=== PATIENT | female | born 1950 | race Caucasian/White ===

== ENCOUNTER 2022-02-11 09:13 | Emergency (ER) | payer MEDICARE, OTHER ==
[2022-02-11 09:26] VITALS: BP 152/86
[2022-02-11] MEDS ORDERED: LIDOCAINE 2%-EPI 1:100000 20 ML MDV ONE (09:53)
[2022-02-11] MEDS ORDERED: LIDOCAINE 2%-EPI 1:100000 20 ML MDV SUBQ STA (10:16)
--- NOTE | 2022-02-11 10:25 | ED Physician Documentation ---
History of Present Illness - Stated complaint Stated Complaint: RT THUMB LAC - Chief complaint Chief Complaint: Laceration - History obtained from History obtained from: Patient - History of Present Illness Timing: Today Pain level max: 4 Pain level now: 3 - Additonal information Additional information: Patient is a 71-year-old female who presents to the emergency department with a right thenar eminence laceration. This occurred at home while cutting an avocado. Tetanus is up-to-date. Patient is right-handed. Better with pressure, nothing makes it worse. 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 - Present Medications Home Medications: Ambulatory Orders Medication Instructions Recorded Confirmed No Known Home Medications 08/30/14 08/30/14 - Allergies Allergies/Adverse Reactions: Allergies Allergy/AdvReac Type Severity Reaction Status Date / Time No Known Drug Allergies Allergy Verified 02/11/22 09:26 - Social History Does the pt smoke?: No Smoking Status: Never smoker Does the pt drink ETOH?: Yes Does the pt have substance abuse?: No - Immunizations Immunizations are current?: Yes Immunizations: TDAP current <10years, TDAP >10years/unknown PD ED PE NORMAL - Vitals Vital signs reviewed: Yes - General General: Alert and oriented X 3, No acute distress - Derm Derm: Warm and dry - Neuro Neuro: Alert and oriented X 3 - Psych Psych: Normal mood, Normal affect PD ED PE EXPANDED - Extremities RETA UE/Hands Visual: 1 - laceration (4 cm, linear, subcutaneous. Neurovascular intact. Tendons intact. Full range of motion of the thumb tested against resistance.) Results - Vitals Vitals: Vital Signs - 24 hr 02/11/22 09:23 Temperature 36.5 C Heart Rate 84 Respiratory 16 Rate Blood Pressure 152/86 H O2 Saturation 97 Oxygen O2 Source Room air Procedures - Laceration (location) Right thenar eminence Length in cm: 4 Wound type: Linear, Into subcut fat, Clean Neurovascular status: Sensory intact, Motor intact, Vascular intact Tendon involvement: Tendon intact Anesthesia: Lidocaine 2% with epi Wound preparation: Irrigated copiously NS, Wound explored, To the base Skin layer closure: Interrupted, Size #-0 - enter number (4), Sutures - enter # (7) Other: Patient tolerated well, No complications, Neurovascular intact, Dressing applied, Tetanus UTD PD MEDICAL DECISION MAKING - ED course Complexity details: reviewed results, re-evaluated patient, considered diff erential, d/w patient ED course: Laceration repaired. Tolerated well. Warnings of infection and instructions on wound care given at bedside. Also counseled on how to minimize scarring. Patient and family counseled regarding signs and symptoms for which I believe and urgent re-evaluation would be necessary. Patient with good understanding of and agreement to plan and is comfortable going home at this time This document was made in part using voice recognition software. While efforts are made to proofread this document, sound alike and grammatical errors may occur. Departure - Departure Disposition: 01 Home, Self Care Clinical Impression: Thumb laceration Qualifiers: Encounter type: initial encounter Damage to nail status: without damage Foreign body presence: without foreign body Laterality: right Qualified Code(s): S61.011A - Laceration without foreign body of right thumb without damage to nail, initial encounter Condition: Good Instructions: ED Laceration Hand Follow-Up: Sonia Pendleton MD [Primary Care Provider] - Comments: Follow-up with your doctor in 10 to 14 days for suture removal. Return if you notice redness, swelling or drainage from the wound. Keep the wound clean. You can gently wash the area. Discharge Date/Time: 02/11/22 10:29
== END 2022-02-11 10:29 | disposition home or self-care (01) ==
LOC: ED 09:13
DX: S61.011A Laceration without foreign body of right thumb without damage to nail, initial encounter (principal); W26.0XXA Contact with knife, initial encounter; Y93.G1 Activity, food preparation and clean up; Y92.009 Unspecified place in unspecified non-institutional (private) residence as the place of occurrence of the external cause
CPT/HCPCS: 12002; 99282

== ENCOUNTER 2022-06-28 08:00 | Outpatient (CLI) | payer MEDICARE, OTHER ==
[2022-06-28 16:05] LABS: BASOPHILS % (AUTO) 0.5 %; EOSINOPHILS # (AUTO) 0.3 10^3/uL (0.0-0.7); EOSINOPHILS % (AUTO) 4.2 %; HCT - HEMATOCRIT 43.8 % (37.0-47.0); HGB - HEMOGLOBIN 14.3 g/dL (12.0-16.0); LYMPHOCYTES # (AUTO) 2.1 10^3/uL (1.5-3.5); LYMPHOCYTES % (AUTO) 34.4 %; MEAN CORPUSCULAR HEMOGLOBIN 30.1 pg (27.0-31.0); MEAN CORPUSCULAR HGB CONC 32.6 g/dL (32.0-36.0); MEAN CORPUSCULAR VOLUME 92.2 fL (81.0-99.0); MEAN PLATELET VOLUME 12.5 fL (7.9-10.8); MONOCYTES # (AUTO) 0.4 10^3/uL (0.0-1.0); MONOCYTES % (AUTO) 6.2 %; NEUTROPHILS # (AUTO) 3.3 10^3/uL (1.5-6.6); NEUTROPHILS % (AUTO) 54.4 %; PLT - PLATELET COUNT 225 10^3/uL (130-450); RED BLOOD COUNT 4.75 10^6/uL (4.20-5.40); RED CELL DISTRIBUTION WIDTH 13.5 % (12.0-15.0); WHITE BLOOD COUNT 6.1 x10^3/uL (4.8-10.8)
[2022-06-28 16:20] LABS: ALBUMIN 4.2 g/dL (3.2-5.5); ALBUMIN/GLOBULIN RATIO 1.6 (1.0-2.2); ALKALINE PHOSPHATASE 61 IU/L (42-121); ALT ALANINE AMINOTRANSFERASE 27 IU/L (10-60); AST ASPARTATE AMINOTRANSFERASE 21 IU/L (10-42); BUN - BLOOD UREA NITROGEN 15 mg/dL (6-20); CALCIUM 9.7 mg/dL (8.5-10.3); CARBON DIOXIDE - CO2 23 mmol/L (21-32); CHLORIDE 104 mmol/L (101-111); CHOL/HDL RATIO 5.2 (<4.4); CHOLESTEROL 309 mg/dL; CREATININE 0.4 mg/dL (0.4-1.0); GFR - MDRD 157 (>89); GLUCOSE 95 mg/dL (70-100); HDL CHOLESTEROL 59 mg/dL; LDL CHOLESTEROL,CALCULATED 227 mg/dL; LDL/HDL RATIO 3.8 (<4.4); POTASSIUM 3.9 mmol/L (3.5-5.0); SODIUM 136 mmol/L (135-145); TOTAL PROTEIN 6.9 g/dL (6.7-8.2); TRIGLYCERIDES 113 mg/dL; VLDL CHOLESTEROL 23 mg/dL
[2022-06-28 20:50] LABS: ESTIMATED AVERAGE GLUCOSE 103 mg/dL (70-100); HEMOGLOBIN A1c% 5.2 % (4.27-6.07)
== END 2022-06-28 23:59 | disposition home or self-care (01) ==
LOC: LAB.R 08:00
PROVIDERS: ATTEND Internal Medicine
DX: Z00.00 Encounter for general adult medical examination without abnormal findings (principal); R23.4 Changes in skin texture; E78.5 Hyperlipidemia, unspecified; R73.01 Impaired fasting glucose; R19.4 Change in bowel habit; H91.90 Unspecified hearing loss, unspecified ear; G12.9 Spinal muscular atrophy, unspecified
CPT/HCPCS: 80053; 80061; 82306; 83036; 83721; 84443; 85025

== ENCOUNTER 2022-08-12 12:47 | Outpatient (CLI) | payer MEDICARE, OTHER ==
--- NOTE | 2022-08-14 16:25 | Mammography Report ---
BILATERAL DIGITAL SCREENING MAMMOGRAM 3D/2D: 08/12/2022 CLINICAL: Routine screening. Comparison is made to exams dated: 01/17/2011 mammogram and 04/23/2008 mammogram - [facility]. Both breasts are heterogeneously dense, which may obscure small masses (category c / 51-75% glandular tissue). There is a developing new oval asymmetry with an indistinct margin in the left breast at 10 o'clock p osterior depth. No other significant masses, calcifications, or other findings are seen in either breast. IMPRESSION: INCOMPLETE: NEEDS ADDITIONAL IMAGING EVALUATION The developing new oval asymmetry in the left breast is indeterminate. Additional views with possibl e ultrasound are recommended. Based on the Tyrer Cuzick model (a risk assessment model) the patients lifetime risk is 6.7% and her 10 year risk is 4.6%. According to the ACR, ACS, and NCCN guidelines, an annual breast MRI exam stephany g with mammogram is recommended if the patients lifetime risk is 20% or greater. This exam was interpreted at Station ID: [id number]. NOTE: For mammograms, a report in lay terms will be sent to the patient. Approximately 15% of breast malignancies will not be visualized mammographically. In the management of a palpable breast mass, a negative mammogram must not discourage biopsy of a clinically suspicious lesion. Electronically Signed By: Madhavi ornelas/:08/13/2022 14:45:18 ACR BI-RADS Category 0: Incomplete 3340F PARENCHYMAL PATTERN: (D) - The breast(s) demonstrate(s) heterogeneously dense fibroglandular rigoberto martinez. BI-RADS CATEGORY: (0) - 0 Mammo and US [id number] Immediate follow-up LATERALITY: (B)
== END 2022-08-12 12:48 | disposition home or self-care (01) ==
LOC: DI 12:47
PROVIDERS: ATTEND Internal Medicine
DX: Z12.31 Encounter for screening mammogram for malignant neoplasm of breast (principal); R92.8 Other abnormal and inconclusive findings on diagnostic imaging of breast

== ENCOUNTER 2022-08-12 12:48 | Outpatient (CLI) | payer MEDICARE, OTHER ==
--- NOTE | 2022-08-12 15:28 | DEXA Report ---
PROCEDURE: Dexa Spine and/or Hip INDICATIONS: POST MENOPAUSAL TECHNIQUE: Dual energy x-ray absorptiometry (DXA) was performed on a [employer] System. Regions measur ed are the AP Spine, femoral neck, and if needed forearm. COMPARISON: None. FINDINGS: Lumbar Spine: Bone Mineral Density 0.972 g/cm/cm,T score -1.7. Left Hip: Bone Mineral Density 0.728 g/cm/cm,T score -2.2. Left Femoral Neck: Bone Mineral Density 0.697 g/cm/cm, T score -2.4. (T score greater or equal to -1.0: NORMAL) (T score from -1.1 to -2.4: OSTEOPENIA) (T score less than or equal to -2.5 to: OSTEOPOROSIS) Impression: Osteopenia. Patients with diagnosis of osteoporosis or osteopenia should have regular bone mineral density assess ment. For those eligible for Medicare, routine testing is allowed once every 2 years. Testing frequ ency can be increased for patients who have rapidly progressing disease or for those who are receivin g medical therapy to restore bone mass. Reviewed by: Marcelino Mariano MD on 08/12/2022 3:27 PM PST Approved by: Marcelino Mariano MD on 08/12/2022 3:27 PM PST Station ID: [id number]
== END 2022-08-12 12:49 | disposition home or self-care (01) ==
LOC: DI 12:48
PROVIDERS: ATTEND Internal Medicine
DX: M85.89 Other specified disorders of bone density and structure, multiple sites (principal); Z78.0 Asymptomatic menopausal state

== ENCOUNTER 2022-09-06 08:46 | Outpatient (CLI) | payer MEDICARE, OTHER ==
--- NOTE | 2022-09-09 11:13 | Mammography Report ---
UNILATERAL LEFT DIGITAL DIAGNOSTIC MAMMOGRAM 3D/2D: 09/06/2022 CLINICAL: Patient returns today to evaluate a focal asymmetry in the left breast. Comparison is made to exams dated: 08/12/2022 mammogram, 01/17/2011 mammogram, and 04/23/2008 mammogram - [facility]. The left breast is heterogeneously dense, which may obscure small masses (category c / 51-75% glandul ar tissue). There is a new 9 mm oval asymmetry with an obscured and circumscribed margin in the left breast at 9 o'clock posterior depth. This is seen in additional views. No other significant masses or calcifications are seen in the breast. IMPRESSION: INCOMPLETE: NEEDS ADDITIONAL IMAGING EVALUATION The developing new 9 mm oval asymmetry in the left breast remains indeterminate. An ultrasound is re commended. This was performed immediately following this exam. Based on the Tyrer Cuzick model (a risk assessment model) the patients lifetime risk is 6.7% and her 10 year risk is 4.6%. According to the ACR, ACS, and NCCN guidelines, an annual breast MRI exam stephany g with mammogram is recommended if the patients lifetime risk is 20% or greater. This exam was interpreted at Station ID: [id number]. NOTE: For mammograms, a report in lay terms will be sent to the patient. Approximately 15% of breast malignancies will not be visualized mammographically. In the management of a palpable breast mass, a negative mammogram must not discourage biopsy of a clinically suspicious lesion. Electronically Signed By: Madhavi ornelas/:09/06/2022 09:25:41 ACR BI-RADS Category 0: Incomplete 3340F PARENCHYMAL PATTERN: (D) - The breast(s) demonstrate(s) heterogeneously dense fibroglandular parjodiy ma. BI-RADS CATEGORY: (0) - 0 Ultrasound [id number] Immediate follow-up LATERALITY: (B)
--- NOTE | 2022-09-09 11:13 | Ultrasound Report ---
LIMITED ULTRASOUND OF LEFT BREAST: 09/06/2022 CLINICAL: Patient returns today to evaluate a focal asymmetry in the left breast. Comparison is made to exams dated: 09/06/2022 mammogram, 08/12/2022 mammogram, 01/17/2011 mammogram, an d 04/23/2008 mammogram - [facility]. Color flow and real-time ultrasound of the left breast 9 o'clock region were performed. Harman scale images of the real-time examination were reviewed. There is a 0.8 cm x 0.8 cm x 0.4 cm wider than tall oval mass with a microlobulated margin in the lef t breast at 9 o'clock posterior depth 7 cm from the nipple with the long axis parallel to the skin. This oval mass is hypoechoic with posterior acoustic enhancement. This correlates with mammography f indings. Color flow imaging demonstrates that there is no vascularity present. IMPRESSION: PROBABLY BENIGN The 0.8 cm x 0.8 cm x 0.4 cm wider than tall oval mass in the left breast has a differential diagnosi s of clustered cysts, a complicated cyst, a lymph node, or a fibroadenoma and is probably benign. A follow-up left mammogram and an ultrasound in 6 months is recommended to demonstrate stability. Findings and recommendations were conveyed to the patient at time of exam. This exam was interpreted at Station ID: [id number]. Electronically Signed By: Madhavi ornelas/:09/06/2022 10:34:28 Ultrasound BI-RADS: 3 Probably benign BI-RADS CATEGORY: (3) - 3 Mammo and US [id number] 6 month follow-up LATERALITY: (L)
== END 2022-09-06 08:47 | disposition home or self-care (01) ==
LOC: DI 08:46
PROVIDERS: ATTEND Internal Medicine
DX: R92.8 Other abnormal and inconclusive findings on diagnostic imaging of breast (principal); N63.25 Unspecified lump in the left breast, overlapping quadrants

== ENCOUNTER 2022-09-13 06:32 | Day surgery (SDC) | payer MEDICARE, OTHER ==
[2022-09-13] MEDS ORDERED: LACTATED RINGERS 1,000 ML IV ONE ×2 (07:04→08:06)
[2022-09-13] MEDS ORDERED: PROPOFOL 200 MG/20 ML VIAL IVP ONE (07:31)
[2022-09-13] MEDS ORDERED: PROPOFOL 500 MG/50 ML 500 MG/50 ML VIAL ONE (07:31)
--- NOTE | 2022-09-13 07:34 | ANESTHESIA ---
Pre-Anesthesia VS, & Labs - Diagnosis screening - Procedure colonoscopy Vital Signs: Temp Pulse Resp BP Pulse Ox O2 Flow Rate 36.0 C L 63 12 142/64 H 99 09/13/22 06:59 09/13/22 06:59 09/13/22 06:59 09/13/22 06:59 09/13/22 06:59 Height: 4 ft 9 in Weight (kg): 52.9 kg Body Mass Index: 25.2 BMI Classification: Overweight - NPO >8 hours - Is Patient ?: No Home Medications and Allergies No Known Home Medications 08/30/14 Allergies/Adverse Reactions: Allergies Allergy/AdvReac Type Severity Reaction Status Date / Time No Known Drug Allergies Allergy Verified 02/11/22 09:26 Anes History & Medical History - Anesthetic History Anesthesia Complications: reports: No previous complications Family history of Anesthesia Complications: Denies Family history of Malignant Hyperthermia: Denies - Medical History Cardiovascular: reports: High cholesterol Pulmonary: reports: None Gastrointestinal: reports: None Urinary: reports: None Musculoskeletal: reports: None Endocrine/Autoimmune: reports: None Skin: reports: None Smoking Status: Never smoker - Surgical History Eyes Ears Nose Throat (EENT): reports: Cataracts Gynecologic: reports: section Orthopedic: reports: Other Exam General: Alert, Oriented x3, Cooperative Dental: WNL Mouth Openin Fingerbreadth Neck Mobility: Normal Mallampati classification: I Thyromental Distance: 4-6 cm Respiratory: Lungs clear Cardiovascular: Regular rate Plan Anesthesia Type: General, Total IV Consent for Procedure(s) Verified and Reviewed: Yes Code Status: Attempt Resuscitation ASA classification: 2-Mild systemic disease Is this case an emergency?: No
[2022-09-13 08:31] VITALS: BP 148/59
--- NOTE | 2022-09-13 14:05 | ANESTHESIA POST OP EVALUATION ---
Anesthesia Post Eval - Post Anesthesia Eval Vitals: Last Vital Signs Temp 36.2 C L 09/13/22 08:29 Pulse 62 09/13/22 08:29 Resp 16 09/13/22 08:29 BP 148/59 H 09/13/22 08:29 Pulse Ox 100 09/13/22 08:29 O2 Flow Rate CV Function Including HR & BP: Stable Pain Control: Satisfactory Nausea & Vomiting: Negative Mental Status: Baseline Respiratory Status: Airway Patent Hydration Status: Satisfactory Anesthesia Complications: None
== END 2022-09-13 06:33 | disposition home or self-care (01) ==
LOC: SDS 06:32
PROVIDERS: ATTEND Surgery
PROC: 0DBL8ZZ Excision of Transverse Colon, Via Natural or Artificial Opening Endoscopic (ICD-10-PCS; principal; 2022-09-13 07:30)
DX: Z12.11 Encounter for screening for malignant neoplasm of colon (principal); K63.5 Polyp of colon; K57.30 Diverticulosis of large intestine without perforation or abscess without bleeding; K64.8 Other hemorrhoids
CPT/HCPCS: 45385; J7120

== ENCOUNTER 2023-04-04 08:34 | Outpatient (CLI) | payer MEDICARE, OTHER ==
--- NOTE | 2023-04-07 10:52 | Ultrasound Report ---
LIMITED ULTRASOUND OF LEFT BREAST: 04/04/2023 CLINICAL: Patient returns today to evaluate a focal asymmetry in the left breast. Comparison is made to exams dated: 04/23/2008 mammogram, 01/17/2011 mammogram, 08/12/2022 mammogram, mammogram, 09/06/2022 ultrasound, and 04/04/2023 mammogram - [facility]. Color flow and real-time ultrasound of the left breast 9 o'clock region were performed. Harman scale images of the real-time examination were reviewed. There is a 1 cm x 0.7 cm x 0.4 cm wider than tall oval mass in the left breast at 9 o'clock posterior depth 7 cm from the nipple with the long axis parallel to the skin. This oval mass is hypoechoic wi th internal echoes and posterior acoustic enhancement. This abnormality is not significantly changed and correlates with mammography findings. Color flow imaging demonstrates that there is no vascular ity present. IMPRESSION: PROBABLY BENIGN The 1 cm x 0.7 cm x 0.4 cm wider than tall oval mass in the left breast has a differential diagnosis of clustered cysts, a complicated cyst, a lymph node, or a fibroadenoma and is probably benign. A follow-up bilateral mammogram and a left ultrasound in 6 months is recommended to demonstrate karina nued stability. Findings and recommendations were conveyed to the patient during today's evaluation. This exam was interpreted at Station ID: [id number]. Electronically Signed By: Lavelle Javier M.D. aty/:04/04/2023 09:57:01 Ultrasound BI-RADS: 3 Probably benign BI-RADS CATEGORY: (3) - 3 Mammo and US [id number] 6 month follow-up LATERALITY: (B)
--- NOTE | 2023-04-07 10:52 | Mammography Report ---
UNILATERAL LEFT DIGITAL DIAGNOSTIC MAMMOGRAM 3D/2D: 04/04/2023 CLINICAL: Patient returns for a 6 month follow up of the left breast. Comparison is made to exams dated: 09/06/2022 mammogram and 08/12/2022 mammogram - [facility]. The left breast is heterogeneously dense, which may obscure small masses (category c / 51-75% glandul ar tissue). There is a 9 mm oval focal asymmetry with an obscured and circumscribed margin in the left breast at 9 o'clock posterior depth. This is not significantly changed. No other significant masses or calcifications are seen in the breast. IMPRESSION: INCOMPLETE: NEEDS ADDITIONAL IMAGING EVALUATION The 9 mm oval focal asymmetry in the left breast resembles a cyst or clustered cysts and is indetermi santana. An ultrasound is recommended. Based on the Tyrer Cuzick model (a risk assessment model) the patients lifetime risk is 6.7% and her 10 year risk is 4.6%. According to the ACR, ACS, and NCCN guidelines, an annual breast MRI exam stephany g with mammogram is recommended if the patients lifetime risk is 20% or greater. This exam was interpreted at Station ID: [id number]. NOTE: For mammograms, a report in lay terms will be sent to the patient. Approximately 15% of breast malignancies will not be visualized mammographically. In the management of a palpable breast mass, a negative mammogram must not discourage biopsy of a clinically suspicious lesion. Electronically Signed By: Lavelle Javier M.D. atclaude/stephanie:04/04/2023 09:55:11 ACR BI-RADS Category 0: Incomplete 3340F PARENCHYMAL PATTERN: (D) - The breast(s) demonstrate(s) heterogeneously dense fibroglandular parjosue martinez. BI-RADS CATEGORY: (0) - 0 Ultrasound [id number] Immediate follow-up LATERALITY: (L)
== END 2023-04-04 08:35 | disposition home or self-care (01) ==
LOC: DI 08:34
PROVIDERS: ATTEND Internal Medicine
DX: N63.25 Unspecified lump in the left breast, overlapping quadrants (principal)

== ENCOUNTER 2023-10-22 08:12 | Outpatient (CLI) | payer MEDICARE, OTHER ==
--- NOTE | 2023-10-22 12:57 | Mammography Report ---
BILATERAL DIGITAL DIAGNOSTIC MAMMOGRAM 3D/2D: 10/22/2023 CLINICAL: Patient returns for a 6 month follow up of the left breast, due for bilateral exam. Comparison is made to exams dated: 04/04/2023 mammogram, 09/06/2022 mammogram, and 08/12/2022 mammogram - [facility]. Both breasts are heterogeneously dense, which may obscure small masses (category c / 51-75% glandular tissue). There is a 9 mm oval equal density asymmetry with an obscured and circumscribed margin in the left br east at 9 o'clock posterior depth. This is seen in additional views. This has not significantly barry nged. No other significant masses, calcifications, or other findings are seen in either breast. Bilateral mammograms are otherwise stable. Occasional benign calcifications are present. IMPRESSION: INCOMPLETE: NEEDS ADDITIONAL IMAGING EVALUATION The 9 mm oval equal density asymmetry in the left breast is unchanged. An ultrasound is recommended t o demonstrate stability. This was performed immediately following this exam. Bilateral mammograms are stable. Based on the Tyrer Cuzick model (a risk assessment model) the patients lifetime risk is 6.3% and her 10 year risk is 4.7%. According to the ACR, ACS, and NCCN guidelines, an annual breast MRI exam along with mammogram is recommended if the patients lifetime risk is 20% or greater. This exam was interpreted at Station ID: [id number]. NOTE: For mammograms, a report in lay terms will be sent to the patient. Approximately 15% of breast malignancies will not be visualized mammographically. In the management of a palpable breast mass, a negative mammogram must not discourage biopsy of a clinically suspicious lesion. Electronically Signed By: Madhavi ornelas/:10/22/2023 08:51:44 ACR BI-RADS Category 0: Incomplete 3340F PARENCHYMAL PATTERN: (D) - The breast(s) demonstrate(s) heterogeneously dense fibroglandular parjosue martinez. BI-RADS CATEGORY: (0) - 0 Ultrasound [id number] Immediate follow-up LATERALITY: (B)
--- NOTE | 2023-10-22 12:58 | Ultrasound Report ---
LIMITED ULTRASOUND OF LEFT BREAST: 10/22/2023 CLINICAL: Patient returns today to evaluate a focal asymmetry in the left breast. Comparison is made to exams dated: 10/22/2023 mammogram, 04/04/2023 ultrasound, 04/04/2023 mammogram, 11/07/2021 ultrasound, 09/06/2022 mammogram, and 08/12/2022 mammogram - [facility]. Color flow and real-time ultrasound of the left breast 9 o'clock region were performed. Harman scale images of the real-time examination were reviewed. There is a 1 cm x 0.9 cm x 0.4 cm oval cyst cluster with a septated internal wall in the left breast at 9 o'clock posterior depth 7 cm from the nipple. This oval cyst is hypoechoic with a well-defined boundary and no posterior acoustic shadowing or enhancement. This abnormality is not significantly c hanged and correlates with mammography findings. Color flow imaging demonstrates that there is no va scularity present. IMPRESSION: PROBABLY BENIGN The 1 cm x 0.9 cm x 0.4 cm oval cyst in the left breast is stable, most likely is apocrine metaplasia , fibrocystic change or a complicated cyst and is probably benign. A follow-up left ultrasound in 6 months is recommended to demonstrate continued stability. Findings and recommendations were conveyed to the patient at time of exam. This exam was interpreted at Station ID: [id number]. Electronically Signed By: Madhavi ornelas/:10/22/2023 09:13:38 Ultrasound BI-RADS: 3 Probably benign BI-RADS CATEGORY: (3) - 3 Ultrasound [id number] 6 month follow-up LATERALITY: (L)
== END 2023-10-22 08:13 | disposition home or self-care (01) ==
LOC: DI 08:12
PROVIDERS: ATTEND Internal Medicine
DX: R92.333 Mammographic heterogeneous density, bilateral breasts (principal); N60.02 Solitary cyst of left breast